=== PATIENT | female | born 2005 | race Two or more races ===

== ENCOUNTER 2023-09-24 02:39 | Emergency (ER) | payer OTHER ==
[~2023-09-24] VITALS: Ht 152.4 cm; Wt 50.0 kg
[2023-09-24 02:44] VITALS: TEMP 98.4
[2023-09-24 03:18] LABS: BASOPHILS % (AUTO) 0.2 % (0.0-2.0); EOSINOPHILS % (AUTO) 1.4 % (1.0-6.0); HEMATOCRIT 37.3 % (36-46); HEMOGLOBIN 12.6 g/dL (12.0-16.0); LYMPHOCYTES # (AUTO) 0.8 K/uL (1.0-4.8); LYMPHOCYTES % (AUTO) 13.3 % (22.0-44.0); MEAN CORPUSCULAR HEMOGLOBIN 29.5 pg (26.0-34.0); MEAN CORPUSCULAR HGB CONC 33.7 G/dL (31.0-37.0); MEAN CORPUSCULAR VOLUME 88 fL (80-100); MONOCYTES # (AUTO) 0.5 K/uL (0.1-1.0); MONOCYTES % (AUTO) 7.4 % (2.0-9.0); NEUTROPHILS # (AUTO) 4.8 K/uL (1.8-7.7); NEUTROPHILS % (AUTO) 77.7 % (40.0-70.0); PLATELET COUNT (AUTO) 375 K/uL (150-450); RED BLOOD CELL COUNT(AUTO) 4.26 MIL/uL (4.00-5.20); RED CELL DISTRIBUTION WIDTH 14.7 % (11.5-14.5); WHITE BLOOD COUNT (AUTO) 6.2 K/uL (4.5-11.0)
[2023-09-24 03:25] LABS: ANION GAP 9 mmol/L (8-16); CALCIUM, TOTAL 8.5 mg/dL (8.8-10.5); CARBON DIOXIDE 29 mmol/L (22-29); CHLORIDE 97 mmol/L (98-107); CREATININE 0.73 mg/dL (0.60-1.30); GLOMERULAR FILTR. RATE CALC > 60 mL/min (>60); GLUCOSE,RANDOM 115 mg/dL (70-110); POTASSIUM 3.5 mmol/L (3.5-5.1); SODIUM SERUM 135 mmol/L (136-145); UREA NITROGEN, BLOOD 9 mg/dL (7-18)
[2023-09-24 03:36] LABS: ALANINE AMINOTRANSFERASE 12 U/L (12-78); ALBUMIN 3.6 g/dL (3.4-5.0); ALKALINE PHOSPHATASE 73 U/L (46-116); ASPARTATE AMINOTRANSFERASE 14 U/L (15-37); BILIRUBIN,TOTAL 0.5 mg/dL (0.1-1.0); HCG,QUANTITATIVE < 1 mIU/mL (0-6); LIPASE 12 U/L (16-77)
[2023-09-24] MEDS: ONDANSETRON HCL 4 MG/2 ML VIAL IVP ONE (07:36)
[2023-09-24] MEDS: SODIUM CHLORIDE 0.9% 1,000 ML IV ONE (07:36)
[2023-09-24 09:23] LABS: APPEARANCE,URINE CLEAR (CLEAR); BILIRUBIN,URINE NEGATIVE (NEGATIVE); COLOR,URINE LIGHT YELLOW (YELLOW); GLUCOSE, URINE (UA) NEGATIVE (NEGATIVE); KETONES,URINE 80-100 mg/dL (NEGATIVE); LEUKOCYTE ESTERASE ,URINE SMALL (NEGATIVE); NITRATE,URINE NEGATIVE (NEGATIVE); OCCULT BLOOD,URINE SMALL (NEGATIVE); PH,URINE 6.5 (5.0-8.0); PROTEIN,URINE NEGATIVE (NEGATIVE); SPECIFIC GRAVITIY, URINE 1.013 (1.003-1.030)
[2023-09-24 09:30] LABS: BACTERIA,URINE Moderate /HPF (None Seen); SQUAMOUS EPITHELIAL CELL,UR Moderate /LPF (None Seen)
[2023-09-24 10:30] VITALS: BP 101/66; PULSE 90; RESP 16
[2023-09-24] MEDS ORDERED: ONDA-104 PO (10:42)
[2023-09-24] MEDS ORDERED: ACET-66 PO (10:42)
[2023-09-24] MEDS ORDERED: OMEP20 PO (10:42)
== END 2023-09-24 11:15 | disposition home or self-care (01) ==
LOC: EMS 02:40
DX: K29.70 Gastritis, unspecified, without bleeding (principal); B96.89 Other specified bacterial agents as the cause of diseases classified elsewhere; R07.89 Other chest pain; R51.9 Headache, unspecified
CPT/HCPCS: 99285; 96374; 76700; 96361; 80053; 81001; 83690; 84702; 85025; 36415; 87086; 87186; 93005; J2405; J7030